=== PATIENT | male | born 1950 | race Two or more races ===

== ENCOUNTER 2023-09-05 06:50 | Day surgery (SDC) | payer MEDICARE ==
[2023-09-04 11:59] VITALS: BMI 24.3
[2023-09-05 09:12] LABS: Anion Gap 13 mmol/L (10-20); BUN (Urea Nitrogen) 14 mg/dL (8.4-25.7); Calc. Creatinine Clearance 77 mL/min (70-130); Calcium 9.4 mg/dL (7.8-10.44); Carbon Dioxide 23 mmol/L (23-31); Chloride 103 mmol/L (98-107); Estimated GFR 91; Glucose 97 mg/dL (83-110); Sodium 135 mmol/L (136-145)
[2023-09-05] MEDS ORDERED: Ipratropium/Albuterol 3 ML NEB ONE (09:13)
[2023-09-05] MEDS ORDERED: Ipratropium/Albuterol 3 ML NEB NEB SCH (09:15)
[2023-09-05] MEDS ORDERED: Dexamethasone 20 MG/5 ML VIAL ONE (10:12)
[2023-09-05] MEDS ORDERED: Lidocaine 1% PF 5 ML VIAL ONE (10:12)
[2023-09-05] MEDS ORDERED: SUGAMMADEX SODIUM 200 MG/2 ML VIAL ONE (10:12)
[2023-09-05] MEDS ORDERED: Midazolam HCl 2 mg/2 ml Vial ONE (10:12)
[2023-09-05] MEDS ORDERED: Ondansetron PF 4 MG/2 ML Vial ONE (10:12)
[2023-09-05] MEDS ORDERED: fentaNYL 50 mcg/mL 1 mL Vial ONE (10:12)
[2023-09-05] MEDS ORDERED: PROPOFOL 20 ML ONE (10:12)
[2023-09-05] MEDS ORDERED: EPINEPHrine 1 MG/ML VIAL ONE (10:41)
[2023-09-05] MEDS ORDERED: Hydrocodone-Acetamin 15 ML UDCUP ONE (12:33)
== END 2023-09-05 14:30 | disposition home or self-care (01) ==
LOC: CSHSDC 06:50
PROVIDERS: ATTEND Otolaryngology Plastic Surgery within the Head & Neck
PROC: 0CBM8ZX Excision of Pharynx, Via Natural or Artificial Opening Endoscopic, Diagnostic (ICD-10-PCS; principal; 2023-09-05)
DX: R22.1 Localized swelling, mass and lump, neck (principal); F17.210 Nicotine dependence, cigarettes, uncomplicated; Z96.651 Presence of right artificial knee joint
CPT/HCPCS: 31536; 80048; J0171; J1100; J2250; J2405; J2704; J3010; 36415; 88305; 88331; 88341; 88342; J7620